=== PATIENT | male | born 1965 | race Caucasian/White ===

== ENCOUNTER 2021-08-20 14:14 | Emergency (ER) | payer OTHER, SELFPAY ==
[2021-08-20 14:28] VITALS: BP 160/106; PULSE 86; RESP 16; TEMP 36.9; O2SAT 98
--- NOTE | 2021-08-20 14:39 | ED.SKABFB ---
HPI - Skin/Abscess/Foreign Bdy General Chief complaint: Skin/Abscess/Foreign Body Stated complaint: Poss spider bite Time Seen by Provider: 08/20/21 14:39 Source: patient History of Present Illness HPI narrative: Patient presents with a firm tender reddened area to his abdomen that he noticed 3 days ago. Patient denies any drainage from the area states he is unsure if he was bit by a bug or what started this area. Patient has been picking at it and has removed a scab no drainage at present no streaking. Related Data Allergies Allergy/AdvReac Type Severity Reaction Status Date / Time No Known Allergies Allergy Verified 08/20/21 14:32 Review of Systems Review of Systems: CONSTITUTIONAL: Denies fever, chills, or sweats. EYES: Denies visual changes, redness, or discharge. ENT: Denies rhinorrhea, congestion, sore throat, or otalgia. CARDIOVASCULAR: Denies chest pain, palpitations, or edema. RESPIRATORY: Denies cough or dyspnea. GASTROINTESTINAL: Denies abdominal pain, nausea, vomiting, or diarrhea. GENITOURINARY: Denies dysuria or hematuria. SKIN: Denies rash or itching. MUSCULOSKELETAL: Denies back pain, joint pain, or myalgia. NEUROLOGIC: Denies headache, numbness, or weakness. PSYCHIATRIC: Denies anxiety or depression. PMFSH Comments At time of signature, agree with nursing past medical, surgical, social and family history. There is no relevant family history pertinent to the presenting complaint Exam Narrative: GENERAL: Well-appearing, well-nourished, and in no acute distress. HEAD: Normocephalic, atraumatic. EYES: PERRLA and EOMI. ENT: Nares clear, no rhinorrhea or epistaxis. Mucous membranes moist. NECK: Supple. CHEST: Clear to auscultation. No respiratory distress. HEART: Regular rate and rhythm. No murmur heard. Normal peripheral pulses. ABDOMEN: Soft, nontender, nondistended, normal active bowel sounds. EXTREMITIES: Normal range of motion. No edema. SKIN: Warm, dry, no rash. 3 cm x 3 cm area of redness warm to touch no induration no fluctuance to mid abdominal area no indication for I&D at this time NEURO: No focal deficits. Alert and oriented x3. Kitty Coma Scale Eye Opening: Spontaneous 4 [place] Coma Scale Motor: Obeys Commands 6 Shelby Coma Scale Verbal: Oriented 5 Kitty Coma Scale Total 15 Course Vital Signs Vital signs: Vital Signs Temperature 36.9 C 08/20/21 14:28 Pulse Rate 86 08/20/21 14:28 Respiratory Rate 16 08/20/21 14:28 Blood Pressure 160/106 H 08/20/21 14:28 Pulse Oximetry 98 08/20/21 14:28 Temperature 36.9 C 08/20/21 14:28 Pulse Rate 86 08/20/21 14:28 Respiratory Rate 16 08/20/21 14:28 Blood Pressure 160/106 H 08/20/21 14:28 Pulse Oximetry 98 08/20/21 14:28 Please KARMEN schedule a followup visit with your personal physician for further evaluation and treatment. Including recheck and discussion of your blood pressure. If your symptoms persist, change or worsen significantly before you can contact your personal physician then please, without delay, go to the emergency department for further evaluation Critical dx considered and discussed with pt. Educated patient on red flag s/s and to go to ED if s/s occur. Discussed with pt when to return to [facility] or primary care provider. Pt gave verbal undertstanding, all questions were answered, and pt was agreeable to plan 150/88 MDM - Skin/Abscess/Foreign Bdy Differential Diagnosis Differential diagnosis: Likely abscess of skin or subcutaneous tissue, viral exanthem, dermatophytosis, urticaria, herpes zoster, allergic reaction to drug, cellulitis, eczema, insect bites, impetigo and contact dermatitis Critical Care Time Critical Care Time Critical Care Time: No Discharge Plan Discharge Clinical Impression: Abscess of skin or subcutaneous tissue Patient Disposition: Home, Self-Care Condition: Stable Instructions: Antibiotic Form Additional Instructions: Warm compresses to the area 20-30 minute
[2021-08-20 14:45] VITALS: BP 153/106
== END 2021-08-20 14:45 | disposition home or self-care (01) ==
PROVIDERS: Emergency Provider Nurse Practitioner Family
DX: L02.211 Cutaneous abscess of abdominal wall (principal)
CPT/HCPCS: 99213; G0463